=== PATIENT | male | born 1940 | race Caucasian/White ===

== ENCOUNTER 2016-08-23 09:29 | Day surgery (SDC) | payer MEDICARE ==
[~2016-08-23] VITALS: Ht 177.8 cm; Wt 84.0 kg
--- NOTE | 2016-08-24 08:05 | OR ---
ADMIT: 08/23/2016 RM/LOC: [facility] MR#: [id number] [address] [id number] ANN-MARIE TREVINO [address] [place] [address] Operative/Delivery Room Report SEX: M AGE: 76 : 1940 SURGERY DATE: 08/23/2016 SURGEON: Damari Durán MD [facility] SPECIALIST: None. PREPROCEDURE DIAGNOSES: 1. Cervical spondylosis. 2. Cervicalgia. POSTPROCEDURE DIAGNOSES: 1. Cervical spondylosis. 2. Cervicalgia. PROCEDURE PERFORMED: Left C3-C4, C4-C5, and C5-C6 facet injection. INDICATIONS FOR PROCEDURE: The patient is a pleasant gentleman with history of chronic neck pain with headaches comes here for planned cervical facet injection. ANESTHESIA: Local without sedation. ESTIMATED BLOOD LOSS: Zero. COMPLICATIONS: None immediately evident. DESCRIPTION OF PROCEDURE: After the patient was seen in the preoperative area, vitals signs were taken. Prior to the procedure, the risks, benefits, and alternative therapies were discussed at length. Patient consent was obtained and updated. The patient was taken to the fluoroscopy suite and placed on the fluoroscopy table in the prone position. Pressure points were padded to comfort, monitors applied, and a timeout performed. The patient's jaw was turned to the right initially. The cervical region was prepared with ChloraPrep and sterile drape placed. C-arm fluoroscopy was then brought in to identify the facet joint of the C3-C4, C4-C5, and C5-C6 level on the left side. A 3.5-inch 22-gauge curved-tip spinal needle was used to access the facet joint. The spinal needle was then advanced and made contact ADMIT: 08/23/2016 RM/LOC: [facility] MR#: [id number] [id number] [facility] [address] [place], [place] [address] URIELANN-MARIE Kolby [address] [place] [address] Operative/Delivery Room Report SEX: M AGE: 76 : 1940 with the superior articular facet at each level and then walked off the joint. Then 0.5 mL Isovue-300 was instilled at each level showing a good intraarticular spread. The patient then received 1 mL of 5 mg of Decadron and 0.25% of bupivacaine distributed at each level. At left C3-C4, C4-C5, and C5-C6 joints were reproductive of pain. The patient tolerated the procedure well and there were no complications. PLAN: The patient was examined after 20 minutes and had 80% reduction of pain, and range of motion went from 10 degrees to 25 degrees of extension. Discharge instructions were given, followup scheduled. The patient was discharged home with a catshovel driver. Damari Durán MD/ susy JOB #: [id number] CC: Damari Durán, Attending Physician Yudelka Curry, Family Physician
== END 2016-08-23 11:01 | disposition home or self-care (01) ==
LOC: SSS 09:29
PROC: BR14YZZ Fluoroscopy of Cervical Facet Joint(s) using Other Contrast (ICD-10-PCS; principal; 2016-08-23)
PROC: 3E0U3BZ Introduction of Anesthetic Agent into Joints, Percutaneous Approach (ICD-10-PCS; principal; 2016-08-23)
PROC: 3E0U33Z Introduction of Anti-inflammatory into Joints, Percutaneous Approach (ICD-10-PCS; principal; 2016-08-23)
DX: G89.29 Other chronic pain (principal); M47.812 Spondylosis without myelopathy or radiculopathy, cervical region; M47.816 Spondylosis without myelopathy or radiculopathy, lumbar region; M48.02 Spinal stenosis, cervical region; Z79.899 Other long term (current) drug therapy; Z87.891 Personal history of nicotine dependence